=== PATIENT | male | born 1965 | race Caucasian/White ===

== ENCOUNTER 2016-09-19 11:47 | Emergency (ER) | payer BC ==
[2016-09-19 13:06] VITALS: BP 128/70
[2016-09-19] MEDS ORDERED: NS 0.9% 1000 ML* 1,000 ML IV ONE (14:56)
[2016-09-19] MEDS ORDERED: Ondansetron ODT TAB* 4 MG PO ONE (14:57)
--- NOTE | 2016-09-22 12:33 | UC ---
Larisa Alonso Michael, scribed for Rosalina Wilburn MD on 09/19/16 at 1512 . Abdominal Pain Male HPI - HPI Summary HPI Summary: 51 y/o male comes to [facility] presenting with constant nausea for the past three days. The pt also c/o decreased appetite, RAY, myalgia, dehydration, constipation, and fatigue. He states that the RAY occurs intermittently and is alleviated with Tylenol. The pt has taken 4-6 tablets of Tylenol within the past 3 days. The pt denies pain, blood, or dark stool in his last DM which was 3 days ago. He also denies sore throat, ear ache, cough, and CP. The PMHx is significant for hyperlipidemia. - History of Current Complaint Chief Complaint: UCAbdominalPain Stated Complaint: ABDOMINAL PAIN Hx Obtained From: Patient, Medical Records Onset/Duration: Gradual Onset, Still Present Timing: Constant Severity Initially: Mild Severity Currently: Moderate Pain Intensity: 4 Pain Scale Used: 0-10 Numeric Location: Other - RAY. myalgia. Radiates: No Alleviating Factor(s): Meds - Tylenol for RAY Associated Signs And Symptoms: Positive: Negative - sore throat, ear ache, cough , diarrhea and CP, Constipation, Decreased Appetite, Nausea, Other - RAY. myalgia. fatigue. dehydration. - Allergies/Home Medications Allergies/Adverse Reactions: Allergies Allergy/AdvReac Type Severity Reaction Status Date / Time Penicillins Allergy Unknown Verified 09/21/16 09:11 Reaction Details Home Medications: Home Medications Atorvastatin* [Lipitor 10 MG*] 09/19/16 [History] PMH/Surg Hx/FS Hx/Imm Hx Endocrine History Of: Reports: Dyslipidemia Denies: Diabetes, Thyroid Disease Cardiovascular History Of: Denies: Cardiac Disorders, Hypertension Respiratory History Of: Denies: COPD, Asthma GI/ History Of: Denies: Ulcer - Surgical History Surgical History: Yes Surgery Procedure, Year, and Place: torn maniscus,deviated septum repair,choley - Family History Known Family History: Negative: Diabetes - Social History Occupation: Employed Full-time Lives: Alone Alcohol Use: None Substance Use Type: None Smoking Status (MU): Never Smoked Tobacco Review of Systems Constitutional: Fatigue, Other - dehydration Gastrointestinal: Vomiting, Other - constipation. decreased appetite. Musculoskeletal: Myalgia Neurological: Headache All Other Systems Reviewed And Are Negative: Yes Physical Exam Triage Information Reviewed: Yes Appearance: Well-Nourished, Other: - lips were dry Vital Signs: Initial Vital Signs Temp 99.1 F 09/19/16 13:00 Pulse 70 09/19/16 13:00 Resp 18 09/19/16 13:00 BP 128/70 09/19/16 13:00 Pulse Ox 100 09/19/16 13:00 Vital Signs Reviewed: Yes Eye Exam: Normal ENT: Positive: Pharyngeal erythema, TMs normal, Other: - nml anterior uvula midline and trachea midline. Neck exam: Normal Respiratory Exam: Normal Respiratory: Positive: Chest non-tender, Lungs clear, Normal breath sounds, Other: - no dyspnea. no tachypnea. Cardiovascular: Positive: RRR, No Murmur, Pulses Normal, Brisk Capillary Refill Abdominal Exam: Other - mild diffuse discomfort No organomegaly appreciated. No R/G No cvat Abdomen Description: Positive: No Organomegaly, Soft. Negative: CVA Tenderness (R), CVA Tenderness (L) Bowel Sounds: Positive: Hyperactive Musculoskeletal Exam: Normal Musculoskeletal: Positive: Strength Intact Neurological Exam: Normal - nonfocal. grossly intact, Psychological: Positive: Age Appropriate Behavior, Other: - consersing easily Skin Exam: Normal - no visible or reported rash Abd Pain Male Course/Dx - Course Course Of Treatment: After 1st recheck the pt states feeling worse and will be transfered to [facility] [place] ED by ambulance. Discussed pt care and transfer with Doron Cutler at 1638. Negative influenza A and B. POC Urine Protein- 1+ . Ketones- 3+. [place] 1+ - Differential Dx/Clinical Impression Provider Diagnoses: Volume depletion. N/V. Abdominal discomfort Discharge - Discharge Plan Condition: Stable Disposition: TRANS HIGHER LVL OF CARE FAC Referrals: Non Staff,Doctor [Primary Care Provider] - The documentation as recorded by the Larisa marie Michael accurately reflects the service I personally performed and the decisions made by me, Rosalina Wilburn MD.
== END 2016-09-19 17:09 | disposition short-term general hospital (02) ==
LOC: UCEAST 11:47
DX: E86.9 Volume depletion, unspecified (principal); R11.2 Nausea with vomiting, unspecified; R10.84 Generalized abdominal pain; Z88.0 Allergy status to penicillin; E78.5 Hyperlipidemia, unspecified
CPT/HCPCS: 81003; 87502; 96360; 96361; 99213; G0463

== ENCOUNTER 2016-09-19 17:24 | Emergency (ER) | payer BC ==
[2016-09-19 17:35] VITALS: BP 130/74
[2016-09-19] MEDS ORDERED: Metoclopramide IV* 5 MG/ML 2 ML VIAL IV ONE (18:15)
--- NOTE | 2016-09-19 18:21 | ED ---
Abdominal Pain/Male - HPI Summary HPI Summary: Patient is referred from [facility] for diffuse vague abdominal pain, nausea and malaise for four days. He denies fever, chills, vomiting, headache, congestion, sore throat or reflux. He has not felt like eating or drinking much over this time period. 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 He feels lethargic. - History of Current Complaint Chief Complaint: EDNauseaVomitDiarrh Stated Complaint: NAUSEA Time Seen by Provider: 09/19/16 17:57 Hx Obtained From: Patient Onset/Duration: Gradual Onset Timing: Constant Severity Initially: Mild Severity Currently: Moderate Location: Diffuse Radiates: No Character: Dull Aggravating Factor(s): Nothing Alleviating Factor(s): Nothing Associated Signs And Symptoms: Positive: Decreased Appetite, Nausea - Allergies/Home Medications Allergies/Adverse Reactions: Allergies Allergy/AdvReac Type Severity Reaction Status Date / Time Penicillins Allergy Unknown Verified 09/19/16 17:34 Reaction Details PMH/Surg Hx/FS Hx/Imm Hx Endocrine/Hematology History: Denies: Hx Diabetes, Hx Thyroid Disease Cardiovascular History: Reports: Hx Hypercholesterolemia Denies: Hx Hypertension Respiratory History: Denies: Hx Asthma, Hx Chronic Obstructive Pulmonary Disease (COPD) GI History: Denies: Hx Ulcer - Surgical History Surgery Procedure, Year, and Place: torn maniscus,deviated septum repair,choley Infectious Disease History: No Infectious Disease History: Denies: Hx Hepatitis, Hx Human Immunodeficiency Virus (HIV), Traveled Outside the [place] in Last 30 Days - Family History Known Family History: Positive: None - Social History Occupation: Employed Full-time Lives: Alone Alcohol Use: None Substance Use Type: Reports: None Smoking Status (MU): Never Smoked Tobacco Review of Systems Positive: Fatigue. Negative: Fever, Chills Negative: Sore Throat, Ear Ache Negative: Chest Pain Negative: Shortness Of Breath Positive: Abdominal Pain, Nausea. Negative: Vomiting, Diarrhea Positive: no symptoms reported Negative: Myalgia Negative: Headache, Weakness, Paresthesia All Other Systems Reviewed And Are Negative: Yes Physical Exam Triage Information Reviewed: Yes Vital Signs On Initial Exam: Initial Vitals Temp Pulse Resp BP Pulse Ox 99.8 F 79 20 130/74 97 09/19/16 17:27 09/19/16 17:27 09/19/16 17:27 09/19/16 17:27 09/19/16 17:27 Vital Signs Reviewed: Yes Appearance: Positive: Well-Appearing - Patient is resting comfortably on the stretcher with his arms behind his head watching TV when I enter the room., No Pain Distress, Well-Nourished Skin: Positive: Warm, Skin Color Reflects Adequate Perfusion, Dry, Soft Head/Face: Positive: Normal Head/Face Inspection Eyes: Positive: EOMI, KIR[place], Conjunctiva Clear ENT: Positive: Hearing grossly normal Neck: Positive: Supple, Nontender, No Lymphadenopathy Respiratory/Lung Sounds: Positive: Clear to Auscultation, Breath Sounds Present Cardiovascular: Positive: RRR Abdomen Description: Positive: Soft. Negative: Nontender - minimal discomfort when I palpate, CVA Tenderness (R), CVA Tenderness (L), Distended, Guarding, Hernia @, McBur[place]'s Point Tenderness, Peritoneal Signs Bowel Sounds: Positive: Present Musculoskeletal: Negative: Edema Left, Edema Right Neurological: Positive: Sensory/Motor Intact, Alert, Oriented to Person Place, Time, NV Bundle Intact Distally, Normal Gait Psychiatric: Positive: Affect/Mood Appropriate AVPU Assessment: Alert Diagnostics - Vital Signs Vital Signs Temp Pulse Resp BP Pulse Ox 09/19/16 17:27 99.8 F 79 20 130/74 97 - Laboratory Result Diagrams: 09/19/16 18:50 09/19/16 18:50 Lab Statement: Any lab studies that have been ordered have been reviewed, and results considered in the medical decision making process. Abdominal Pain Fem Course/Dx - Course Course Of Treatment: I asked Dr. Escobar to evaluate the patient, since I did not feel his exam, clinical presentation or lab work required a CT scan. Dr. Escobar saw the patient and concurred with my assessment. Therefore the patient will be discharged home with information for establishing care with a local PCP. He understands to return to the ED if sympotms worsen. - Diagnoses Differential Diagnosis/HQI/PQRI: Appendicitis, Bowel Obstruction, Constipation, Diverticulitis, Gall Bladder Disease, Hepatitis, Pancreatitis, Renal Colic, Ureteral Stone, Urinary Tract Infection Provider Diagnoses: Gastroenteritis - Provider Notifications Discussed Care Of Patient With: Dr. Escobar, ED attending. Discharge - Discharge Plan Condition: Stable Disposition: HOME Prescriptions: Ondansetron ODT TAB* [Zofran 4 MG Odt TAB*] 4 mg PO Q6H PRN #20 tab.odt PRN Reason: Nausea Patient Education Materials: Gastroenteritis (ED) Forms: *Work Release Referrals: [facility] [place] PHYSICIAN REFERRAL [Outside] Additional Instructions: Please use the anti-nausea medication as needed. Drink extra fluids and use ibuprofen as needed. Try to eat bland foods and slowly reintroduce foods. Call the number provided to establish care with a local provider for follow-up care. Return to the emergency department if symptoms worsen.
[2016-09-19] MEDS: NS 0.9% 1000 ML* 2,000 ML IV ONE (18:53)
[2016-09-19 19:08] LABS: Hematocrit 47 % (42-52); Hemoglobin 15.9 g/dl (14.0-18.0); Mean Corpuscular HGB Conc 34 g/dl (31-36); Mean Corpuscular Hemoglobin 29 pg (27-31); Mean Corpuscular Volume 86 fL (80-94); Mean Platelet Volume 9 um3 (7.4-10.4); Red Blood Count 5.54 10^6/ul (4.0-5.4); Red Cell Distribution Width 14 % (10.5-15); Urine Bilirubin Negative (Negative); Urine Glucose Negative (Negative); Urine Nitrite Negative (Negative); White Blood Count 5.7 10^3/ul (3.5-10.8)
[2016-09-19 19:21] LABS: BUN/Creatinine Ratio 13.2 (8-20); C Reactive Protein 14.66 mg/L (< 5.00); Calcium 8.7 mg/dL (8.6-10.3); EGFR African American 94.4 (>60); EGFR Non-African American 73.4 (>60); Globulin 2.8 g/dL (2-4); Potassium 3.6 mmol/L (3.5-5.0); Total Bilirubin 1.4 mg/dL (0.2-1.0); Total Protein 6.8 g/dL (6.4-8.9)
[2016-09-19] MEDS ORDERED: Ondansetron ODT TAB* 4 MG PO ONE (20:03)
[2016-09-19] MEDS ORDERED: Ondansetron ODT TAB* 4 MG ONE (20:04)
== END 2016-09-19 20:09 | disposition home or self-care (01) ==
LOC: ED 17:24
DX: K52.9 Noninfective gastroenteritis and colitis, unspecified (principal); R10.84 Generalized abdominal pain; R11.0 Nausea; R53.81 Other malaise
CPT/HCPCS: 36415; 80053; 81003; 82150; 83605; 83690; 85025; 86140; 96374; 99283

== ENCOUNTER 2016-09-21 07:29 | Emergency (ER) | payer BC ==
[2016-09-21 08:01] VITALS: BP 125/74
--- NOTE | 2016-09-21 08:18 | RAD ---
INDICATION: Shortness of breath and chest pain. COMPARISON: There are no prior studies available for comparison. TECHNIQUE: Dual-energy PA and lateral views of the chest were obtained. FINDINGS: The heart is within normal limits in size. Mediastinal and hilar contours appear within normal limits. The lungs are clear. No pleural effusion is present. IMPRESSION: NO EVIDENCE FOR ACTIVE CARDIOPULMONARY DISEASE.
[2016-09-21] MEDS ORDERED: Aspirin Low Dose CHEW TAB* 81 MG ONE (08:38)
[2016-09-21] MEDS ORDERED: Aspirin Low Dose CHEW TAB* 81 MG PO ONE (08:38)
--- NOTE | 2016-09-21 15:48 | ED ---
Forest Alonso Alok, scribed for Rosalina Wilburn MD on 09/21/16 at 0753 . HPI Chest Pain - HPI Summary HPI Summary: 51 y/o male c/o progressive midsternal chest discomfort and pressure, and associated "short of breath." He noticed sx yesterday, progressively worse today. Recently seen in for n/v and volume depletion, despite anti-emetics and 2 LNS, symptoms did not improve and was transfered to the ED. Ancillaries from 09/19/16 noted in [employer] (include elevated crp). Reports that the GI symptoms have improved, still weak, but able to drink fluids w/o n/v. No diarrhea. No melena / brbpr. No urinary sx. No rash. No h/a, st, neck pain. He reports that he has never felt anything like this prior to current illness. Sx are present most of the time, midsternal to slight left ant chest area. Not modified with position. Possibly worse with swallowing. Definitely worse with inspiration. Not worse with external pressure. Denies urinary sx. No current fever. - History of Current Complaint Hx Obtained From: Patient Onset/Duration: Started Days Ago, Atraumatic, Still Present Timing: Constant Initial Severity: Worse Since: - Today Current Severity: Moderate Pain Intensity: 5 Pain Scale Used: 0-10 Numeric Chest Pain Location: Discrete at: - Mid-Sternal Chest Pain Radiates: No Character: Pressure/Squeezing Aggravating Factor(s): Nothing Alleviating Factor(s): Nothing Associated Signs and Symptoms: Positive: Chest Pain, Shortness of Breath - Allergy/Home Medications Allergies/Adverse Reactions: Allergies Allergy/AdvReac Type Severity Reaction Status Date / Time Penicillins Allergy Unknown Verified 09/21/16 09:11 Reaction Details PMH/Surg Hx/FS Hx/Imm Hx Previously Healthy: Yes - see hpi Endocrine/Hematology History: Denies: Hx Diabetes, Hx Thyroid Disease Cardiovascular History: Reports: Hx Hypercholesterolemia Denies: Hx Hypertension Respiratory History: Denies: Hx Asthma, Hx Chronic Obstructive Pulmonary Disease (COPD) GI History: Denies: Hx Ulcer - Surgical History Surgery Procedure, Year, and Place: torn maniscus,deviated septum repair,choley Infectious Disease History: Denies: Hx Hepatitis, Hx Human Immunodeficiency Virus (HIV) - Family History Known Family History: Negative: Cardiac Disease, Diabetes - Social History Occupation: Employed Full-time Alcohol Use: None Substance Use Type: Reports: None Smoking Status (MU): Never Smoked Tobacco Review of Systems Negative: Fever Positive: Chest Pain Positive: Shortness Of Breath Negative: Diarrhea Positive: no symptoms reported Negative: Rash Negative: Headache All Other Systems Reviewed And Are Negative: Yes Physical Exam Triage Information Reviewed: Yes Vital Signs On Initial Exam: Initial Vitals Temp Pulse Resp BP Pulse Ox 98.0 F 71 20 125/74 99 09/21/16 07:33 09/21/16 07:33 09/21/16 07:33 09/21/16 07:09/21/16 07:33 Vital Signs Reviewed: Yes Appearance: Positive: Well-Nourished - sitting up Skin: Positive: Warm, Skin Color Reflects Adequate Perfusion, Dry Eyes: Positive: Normal ENT: Positive: Normal ENT inspection Neck: Positive: Supple Respiratory/Lung Sounds: Positive: Clear to Auscultation, Breath Sounds Present , Other - no skin discoloration or rash. Cardiovascular: Positive: Normal, RRR - correlates with left radial pulse Abdomen Description: Positive: Nontender - unable to reproduce tenderness either in chest or in abd. No mass appreciated. No r/g. No cvat. Musculoskeletal: Positive: Normal Neurological: Positive: Normal - grossly normal. nonfocal. Psychiatric: Positive: Normal - conversing easily and appropriately Diagnostics - Vital Signs Vital Signs Temp Pulse Resp BP Pulse Ox 09/21/16 07:33 98.0 F 71 20 125/74 99 - Laboratory Lab Statement: Any lab studies that have been ordered have been reviewed, and results considered in the medical decision making process. - Radiology CXR Xray Interpretation: Positive (See Comments) - IMPRESSION: NO ACTIVE CARDIOPULMONARY DISEASE Radiology Interpretation Completed By: Radiologist - EKG 0743 EKG Rhythm: Sinus Rhythm - 69 bpm EKG Interpretation: VT 135 QRSD 109 QT 395 QTc 423. Probable left atrial enlargment. EKG Comparison: Other - No previous EKG comparison Chest Pain Course/Dx - Course Course Of Treatment: No new problems in CCC. CXR unremarkable. EKG no old for comp, reviewed with pt. Unable to give urine by time of departure. ASA 324mg ( 81 x 4) administered. Transfer to ED, offered and encouraged EMS transfer but pt declines ([place] to that effect signed). D/w SHAWN Hodges. Mr. Carlos was given the opportunity to ask several questions, to which I answered to the best of my ability. Diff dx includes wide array, including but not limited to esophagitis/GI, PE, Cardiac, infectious, other.... - Diagnoses Provider Diagnoses: Chest pain - Provider Notifications Discussed Care Of Patient With: Grace Viveros (ED PA) @ 0836 Discharge - Discharge Plan Condition: Stable Disposition: AGAINST MEDICAL ADVICE Referrals: Non Staff,Doctor [Primary Care Provider] - The documentation as recorded by the Forest marie Alok accurately reflects the service I personally performed and the decisions made by me, Rosalina Wilburn MD.
== END 2016-09-21 09:01 | disposition left against medical advice (07) ==
LOC: UCEAST 07:29
DX: R07.9 Chest pain, unspecified (principal); R06.02 Shortness of breath; E78.00 Pure hypercholesterolemia, unspecified; Z88.0 Allergy status to penicillin
CPT/HCPCS: 71020; 93005; 99212; A9270-GY; G0463

== ENCOUNTER 2016-09-21 09:05 | Emergency (ER) | payer BC ==
[2016-09-21] MEDS ORDERED: Aspirin Low Dose CHEW TAB* 81 MG PO ONE (09:33)
[2016-09-21] MEDS ORDERED: Sucralfate TAB* 1 GM PO ONE (09:34)
[2016-09-21] MEDS ORDERED: Pantoprazole IV* 40 MG IV ONE (09:34)
--- NOTE | 2016-09-21 10:05 | RAD ---
INDICATION: Chest pain. COMPARISON: Comparison is made with a prior study from September 21, 2016. TECHNIQUE: A portable view of the chest was obtained. FINDINGS: Cardiac and mediastinal contours appear to be within normal limits. The lungs are clear. No pleural effusion is seen. IMPRESSION: NO EVIDENCE FOR ACUTE DISEASE.
[2016-09-21 10:25] LABS: Hematocrit 47 % (42-52); Hemoglobin 15.6 g/dl (14.0-18.0); Mean Corpuscular HGB Conc 34 g/dl (31-36); Mean Corpuscular Hemoglobin 28 pg (27-31); Mean Corpuscular Volume 84 fL (80-94); Mean Platelet Volume 9 um3 (7.4-10.4); Red Blood Count 5.55 10^6/ul (4.0-5.4); Red Cell Distribution Width 14 % (10.5-15)
[2016-09-21] MEDS ORDERED: Sucralfate TAB* 1 GM ONE (10:27)
[2016-09-21 10:49] LABS: BUN/Creatinine Ratio 11.1 (8-20); EGFR African American 92.3 (>60); EGFR Non-African American 71.8 (>60); Potassium 3.6 mmol/L (3.5-5.0)
[2016-09-21 11:37] VITALS: BP 112/54
--- NOTE | 2016-09-21 11:53 | ED ---
Jennifer Alonso SooYoung, scribed for Fortino Mayo MD on 09/21/16 at 0919 . HPI Chest Pain - HPI Summary HPI Summary: A 51 y/o M presents to ED referred by [facility] today with c/o mid-sternal chest tightness onset yesterday. Aggravating factors: eating/drinking, swallowing. He states it "just doesn't feel right." Denies SOB. Pt was seen two days ago in ED for abd pain, also referred from [facility] that day, D/C home with dx: gastroenteritis. He notes feeling better yesterday, improved energy and appetite. Earlier sx for his GI bug included dry heaves, constipation, lethargy. - History of Current Complaint Chief Complaint: EDChestPainROMI Time Seen by Provider: 09/21/16 09:17 Hx Obtained From: Patient, Medical Records Onset/Duration: Started Days Ago - yesterday, Atraumatic Initial Severity: Mild Current Severity: Mild Pain Intensity: 3 Pain Scale Used: 0-10 Numeric Chest Pain Location: Mid Sternal Aggravating Factor(s): Other: - POS: eating/drinking, swallowing Associated Signs and Symptoms: Negative: Shortness of Breath - Allergy/Home Medications Allergies/Adverse Reactions: Allergies Allergy/AdvReac Type Severity Reaction Status Date / Time Penicillins Allergy Unknown Verified 09/21/16 09:11 Reaction Details PMH/Surg Hx/FS Hx/Imm Hx Previously Healthy: Yes Endocrine/Hematology History: Denies: Hx Diabetes, Hx Thyroid Disease Cardiovascular History: Reports: Hx Hypercholesterolemia Denies: Hx Hypertension Respiratory History: Denies: Hx Asthma, Hx Chronic Obstructive Pulmonary Disease (COPD) GI History: Denies: Hx Ulcer History: Reports: Hx Kidney Stones - Surgical History Surgery Procedure, Year, and Place: torn maniscus,deviated septum repair,choley Infectious Disease History: No Infectious Disease History: Denies: Hx Hepatitis, Hx Human Immunodeficiency Virus (HIV), Traveled Outside the [place] in Last 30 Days - Family History Known Family History: Positive: Other - father , [place]; mother alive Negative: Cardiac Disease - Social History Occupation: Employed Full-time Lives: Alone Alcohol Use: None Hx Substance Use: No Substance Use Type: Reports: None Hx Tobacco Use: No Smoking Status (MU): Never Smoked Tobacco Review of Systems Positive: Chest Pain Negative: Shortness Of Breath All Other Systems Reviewed And Are Negative: Yes Physical Exam Triage Information Reviewed: Yes Vital Signs On Initial Exam: Initial Vitals Temp Pulse Resp BP Pulse Ox 97.6 F 64 16 112/86 100 09/21/16 09:06 09/21/16 09:06 09/21/16 09:06 09/21/16 09:06 09/21/16 09:06 Vital Signs Reviewed: Yes Appearance: Positive: Well-Appearing, No Pain Distress Skin: Positive: Warm, Skin Color Reflects Adequate Perfusion, Dry Head/Face: Positive: Normal Head/Face Inspection Eyes: Positive: Normal ENT: Positive: Normal ENT inspection Neck: Positive: Supple, Nontender Respiratory/Lung Sounds: Positive: Clear to Auscultation, Breath Sounds Present Cardiovascular: Positive: RRR Musculoskeletal: Positive: Normal Neurological: Positive: Normal Psychiatric: Positive: Normal, Affect/Mood Appropriate Diagnostics - Vital Signs Vital Signs Temp Pulse Resp BP Pulse Ox 09/21/16 09:06 97.6 F 64 16 112/86 100 - Laboratory Lab Results: Lab Results 09/21/16 09/21/16 09/21/16 Range/Units 10:10 10:10 10:10 WBC 5.0 (3.5-10.8) 10^3/ul RBC 5.55 H (4.0-5.4) 10^6/ul Hgb 15.6 (14.0-18.0) g/dl Hct 47 (42-52) % MCV 84 (80-94) fL MCH 28 (27-31) pg MCHC 34 (31-36) g/dl RDW 14 (10.5-15) % Plt Count 146 L (150-450) 10^3/ul MPV 9 (7.4-10.4) um3 Neut % (Auto) 70.7 (38-83) % Lymph % (Auto) 15.8 L (25-47) % [place] % (Auto) 13.1 H (1-9) % Eos % (Auto) 0 (0-6) % Baso % (Auto) 0.4 (0-2) % Absolute Neuts (auto) 3.5 (1.5-7.7) 10^3/ul Absolute Lymphs (auto) 0.8 L (1.0-4.8) 10^3/ul Absolute Monos (auto) 0.7 (0-0.8) 10^3/ul Absolute Eos (auto) 0 (0-0.6) 10^3/ul Absolute Basos (auto) 0 (0-0.2) 10^3/ul Absolute Nucleated RBC 0 10^3/ul Nucleated RBC % 0 D-Dimer, Quantitative 219 (Less Than 230) ng/mL Sodium 134 (133-145) mmol/L Potassium 3.6 (3.5-5.0) mmol/L Chloride 98 L (101-111) mmol/L Carbon Dioxide 30 (22-32) mmol/L Anion Gap 6 (2-11) mmol/L BUN 12 (6-24) mg/dL Creatinine 1.08 (0.67-1.17) mg/dL Est GFR ( Amer) 92.3 (>60) Est GFR (Non-Af Amer) 71.8 (>60) BUN/Creatinine Ratio 11.1 (8-20) Glucose 96 (70-100) mg/dL Lactic Acid (0.5-2.0) mmol/L Calcium 9.0 (8.6-10.3) mg/dL Total Bilirubin 1.00 (0.2-1.0) mg/dL AST 21 (13-39) U/L ALT 20 (7-52) U/L Alkaline Phosphatase 62 (34-104) U/L Troponin I 0.00 (<0.04) ng/mL Total Protein 7.0 (6.4-8.9) g/dL Albumin 4.0 (3.2-5.2) g/dL Globulin 3.0 (2-4) g/dL Albumin/Globulin Ratio 1.3 (1-3) 09/21/16 Range/Units 10:10 WBC (3.5-10.8) 10^3/ul RBC (4.0-5.4) 10^6/ul Hgb (14.0-18.0) g/dl Hct (42-52) % MCV (80-94) fL MCH (27-31) pg MCHC (31-36) g/dl RDW (10.5-15) % Plt Count (150-450) 10^3/ul MPV (7.4-10.4) um3 Neut % (Auto) (38-83) % Lymph % (Auto) (25-47) % [place] % (Auto) (1-9) % Eos % (Auto) (0-6) % Baso % (Auto) (0-2) % Absolute Neuts (auto) (1.5-7.7) 10^3/ul Absolute Lymphs (auto) (1.0-4.8) 10^3/ul Absolute Monos (auto) (0-0.8) 10^3/ul Absolute Eos (auto) (0-0.6) 10^3/ul Absolute Basos (auto) (0-0.2) 10^3/ul Absolute Nucleated RBC 10^3/ul Nucleated RBC % D-Dimer, Quantitative (Less Than 230) ng/mL Sodium (133-145) mmol/L Potassium (3.5-5.0) mmol/L Chloride (101-111) mmol/L Carbon Dioxide (22-32) mmol/L Anion Gap (2-11) mmol/L BUN (6-24) mg/dL Creatinine (0.67-1.17) mg/dL Est GFR ( Amer) (>60) Est GFR (Non-Af Amer) (>60) BUN/Creatinine Ratio (8-20) Glucose (70-100) mg/dL Lactic Acid 1.0 (0.5-2.0) mmol/L Calcium (8.6-10.3) mg/dL Total Bilirubin (0.2-1.0) mg/dL AST (13-39) U/L ALT (7-52) U/L Alkaline Phosphatase (34-104) U/L Troponin I (<0.04) ng/mL Total Protein (6.4-8.9) g/dL Albumin (3.2-5.2) g/dL Globulin (2-4) g/dL Albumin/Globulin Ratio (1-3) Result Diagrams: 09/21/16 10:10 09/21/16 10:10 Lab Statement: Any lab studies that have been ordered have been reviewed, and results considered in the medical decision making process. - Radiology CXR Xray Interpretation: No Acute Changes - IMPRESSION: No evidence of acute dz. Radiology Interpretation Completed By: Radiologist - EKG 1 EKG Rhythm: Sinus Rhythm Re-Evaluation - Re-Evaluation 1 Re-Evaluation Time: 11:14 Change: Improved Comment: Discussing results with pt. Chest Pain Course/Dx - Course Course Of Treatment: Mr. Carlos presented after a few days of nausea and wretching which has resolved. He had noticed a fullness in his mid chest since yesterday which was aggravated by swallowing and especially by eating. His W/U was negative and he got a lot of relief with GI medications and I think this is esophageal irritation. I will treat him with a couple days of sucralfate. - Diagnoses Provider Diagnoses: Dyspepsia Discharge - Discharge Plan Condition: Stable Disposition: HOME Prescriptions: Sucralfate SUSP 1 gm PO SEE INSTRUCTIONS #100 ml Patient Education Materials: Sucralfate (By mouth), Chest Pain (ED) Referrals: Non Staff,Doctor [Primary Care Provider] - [facility] [place] PH[facility]IAN REFERRAL [Outside] Additional Instructions: As we discussed: Take your medication as prescribed. Follow up with your primary care physician as needed. Return to the ED if you experience new or worsening symptoms. The documentation as recorded by the Jennifer marie SooYoung accurately reflects the service I personally performed and the decisions made by me, Fortino Mayo MD.
== END 2016-09-21 11:43 | disposition home or self-care (01) ==
LOC: ED 09:05
DX: R10.13 Epigastric pain (principal); R07.9 Chest pain, unspecified
CPT/HCPCS: 36415; 71010; 80053; 83605; 84484; 85025; 85379; 93005; 96374; 99283; A9270-GY

== ENCOUNTER 2016-09-24 16:53 | Emergency (ER) | payer BC ==
--- NOTE | 2016-09-24 19:02 | UC ---
Respiratory Complaint HPI - HPI Summary HPI Summary: 1 WEEK OF DRY COUGH. NON PRODUCTIVE. KEEPS HIM UP AT NIGHT. CHEST FEELS TIGHT. ALSO FEELS LIKE HE HAS A HARD TIME SWALLOWING SOLID FOODS. THEY ARE GOING DOWN BUT FEEL LIKE THEY ARE GETTING STUCK ON THE WAY DOWN. NO PROBLEM WITH FLUIDS. - History of Current Complaint Chief Complaint: UCGeneralIllness Stated Complaint: COUGH Time Seen by Provider: 09/24/16 18:25 Hx Obtained From: Patient Onset/Duration: Gradual Onset, Lasting Days, Still Present Timing: Constant Severity Initially: Moderate Severity Currently: Moderate Pain Intensity: 5 Pain Scale Used: 0-10 Numeric Character: Cough: Nonproductive Aggravating Factors: Deep Breaths Alleviating Factors: Nothing Associated Signs And Symptoms: Positive: Pleuritic Chest Pain - Allergies/Home Medications Allergies/Adverse Reactions: Allergies Allergy/AdvReac Type Severity Reaction Status Date / Time Penicillins Allergy Unknown Verified 09/24/16 18:16 Reaction Details PMH/Surg Hx/FS Hx/Imm Hx Endocrine History Of: Denies: Diabetes, Thyroid Disease Cardiovascular History Of: Denies: Cardiac Disorders, Hypertension Respiratory History Of: Denies: COPD, Asthma GI/ History Of: Reports: Kidney Stones Denies: Ulcer - Surgical History Surgical History: Yes Surgery Procedure, Year, and Place: torn maniscus,deviated septum repair,choley - Family History Known Family History: Positive: Hypertension, Other - father , [place]; mother alive Negative: Cardiac Disease - Social History Alcohol Use: None Substance Use Type: None Smoking Status (MU): Never Smoked Tobacco Review of Systems Constitutional: Negative Skin: Negative Respiratory: Cough Cardiovascular: Negative Gastrointestinal: Other - DYSPHAGIA Genitourinary: Negative All Other Systems Reviewed And Are Negative: Yes Physical Exam Triage Information Reviewed: Yes Appearance: Well-Appearing, No Pain Distress, Well-Nourished Vital Signs: Initial Vital Signs Temp 98.0 F 09/24/16 18: Pulse 75 09/24/16 18:17 Resp 18 09/24/16 18:17 BP 137/78 09/24/16 18:17 Pulse Ox 97 09/24/16 18:17 Vital Signs Reviewed: Yes Eyes: Positive: Conjunctiva Clear ENT: Positive: Hearing grossly normal, Pharynx normal, TMs normal Neck: Positive: Supple, Nontender, No Lymphadenopathy Respiratory: Positive: Lungs clear, Normal breath sounds, No respiratory distress, No accessory muscle use, Other: - DEEP, DRY COUGH Cardiovascular Exam: Normal Abdomen Description: Positive: Soft Musculoskeletal: Positive: No Edema Neurological: Positive: Alert Psychological: Positive: Age Appropriate Behavior Skin: Negative: rashes UC Diagnostic Evaluation - Laboratory O2 Sat by Pulse Oximetry: 97 Respiratory Course/Dx - Differential Dx/Diagnosis Provider Diagnoses: 1. ACUTE BRONCHITIS. 2. DYSPHAGIA Discharge - Discharge Plan Condition: Stable Disposition: HOME Prescriptions: Albuterol HFA INHALER* [Ventolin HFA Inhaler*] 2 puff INH Q4H PRN #1 mdi PRN Reason: Shortness Of Breath Azithromycin [Azithromycin 500 MG TAB] 500 mg PO DAILY #5 tab guaiFENesin/CODIEN 100MG-10MG* [Robitussin AC 100Mg-10Mg*] 5 - 10 ml PO Q6H PRN #150 ml MDD 40 ML PRN Reason: Cough predniSONE TAB* [Deltasone TAB*] 50 mg PO DAILY #5 tab Patient Education Materials: Acute Bronchitis (ED), Dysphagia (ED) Referrals: Bhupendra Drake MD [Medical Doctor] - (CALL FOR AN APPT TO ADDRESS YOUR DIFFICULTY SWALLOWING) Additional Instructions: NO CLEAR BACTERIAL ETIOLOGY OF YOUR SYMPTOMS. TRY PREDNISONE FIRST. FILL RX FOR ANTIBIOTIC OF NO IMPROVEMENT WITH PREDNISONE. CALL THE NUMBER BELOW FOR ASSISTANCE IN ESTABLISHING WITH A PCP An additional resource available to assist in finding the appropriate physician for your health care needs is the [facility] ([facility]). You may contact them by calling [phone].
[2016-09-24 19:22] VITALS: BP 120/79
== END 2016-09-24 19:10 | disposition home or self-care (01) ==
LOC: UCEAST 16:53
DX: J20.9 Acute bronchitis, unspecified (principal); R13.10 Dysphagia, unspecified; Z88.0 Allergy status to penicillin; Z87.442 Personal history of urinary calculi
CPT/HCPCS: 99212; G0463

== ENCOUNTER 2018-05-05 14:21 | Emergency (ER) | payer BC ==
[2018-05-05 14:51] VITALS: BP 112/65
--- NOTE | 2018-05-05 16:03 | UC ---
Throat Pain/Nasal Kyle HPI - HPI Summary HPI Summary: 53 y/o male presents to the urgent care c/o nasal congestion, green nasal charge w/ severe sinus pain for the past 2 weeks. Pt reports symptoms started w / a common cold. he has done the domo pot and taken OTC medications w/o any improvement. Sinus pain more on the RT side and +PND yellowish in color and RT ear fluid. Pt states sinus pain is 9/10. Pt is PCN allergic. Pt denies fever, SOB, dizziness, chest pain,abdominal pain, N/V/D. - History of Current Complaint Chief Complaint: UCGeneralIllness Stated Complaint: SINUS ISSUE Time Seen by Provider: 05/05/18 15:28 Hx Obtained From: Patient Onset/Duration: Gradual Onset, Lasting Weeks - 2 weeks Severity: Severe Pain Intensity: 9 - sinus pain Pain Scale Used: 0-10 Numeric Cough: None Associated Signs & Symptoms: Positive: Sinus Discomfort, Nasal Discharge - Epiglottits Risk Factors Epiglottis Risk Factors: Negative - Allergies/Home Medications Allergies/Adverse Reactions: Allergies Allergy/AdvReac Type Severity Reaction Status Date / Time Penicillins Allergy Intermediate Rash Verified 05/05/18 14:51 PMH/Surg Hx/FS Hx/Imm Hx Previously Healthy: Yes Endocrine History: Dyslipidemia - Surgical History Surgical History: Yes Surgery Procedure, Year, and Place: torn maniscus,deviated septum repair,choley - Family History Known Family History: Positive: Hypertension, Other - father , [place]; mother alive Negative: Cardiac Disease - Social History Occupation: Employed Full-time Lives: With Family Alcohol Use: None Substance Use Type: None Smoking Status (MU): Never Smoked Tobacco Review of Systems All Other Systems Reviewed And Are Negative: Yes Constitutional: Positive: Negative Skin: Positive: Negative Eyes: Positive: Negative ENT: Positive: Ear Ache - RT ear fluid, Nasal Discharge, Sinus Congestion, Sinus Pain/Tenderness Respiratory: Positive: Negative Cardiovascular: Positive: Negative Gastrointestinal: Positive: Negative Genitourinary: Positive: Negative Motor: Positive: Negative Neurovascular: Positive: Negative Musculoskeletal: Positive: Negative Neurological: Positive: Headache Psychological: Positive: Negative Is Patient Immunocompromised?: No Physical Exam - Summary Physical Exam Summary: Vitals: reviewed General: Well developed, well-nourished male patient with NAD. Head and face: Normocephalic and atraumatic, Positive tenderness over the frontal and maxillary sinuses.. Eyes: PERRLA, EOMI x 2. Normal conjunctiva. No eye discharge. ENT: Ears and TM with normal limits. Nose: edematous and erythematous nasal mucosa with with yellowish discharge and erythematous mucosa. Pharynx with erythema, no exudate. +green PND Neck: Supple, no JVD, no carotid bruits and no lymphadenopathy. Lungs: clear, no rales, no rhonchi, no wheezes. CVS: RRR, S1 and S2 present no murmurs or gallops appreciated. Abdomen: soft nontender with positive bowel sounds. Extremities: no edema noted. Neuro: WNL. Skin: warm and dry Triage Information Reviewed: Yes Vital Signs: Initial Vital Signs Temp 97.9 F 05/05/18 14:47 Pulse 61 05/05/18 14:47 Resp 18 05/05/18 14:47 BP 112/65 05/05/18 14:47 Pulse Ox 100 05/05/18 14:47 Throat Pain/Nasal Course/Dx - Course Course Of Treatment: 53 y/o male presents to the urgent care c/o nasal congestion, green nasal charge w/ severe sinus pain for the past 2 weeks. Pt reports symptoms started w/ a common cold. he has done the domo pot and taken OTC medications w/o any improvement. Sinus pain more on the RT side and +PND yellowish in color and RT ear fluid. Pt states sinus pain is 9/10. Pt is PCN allergic. Pt denies fever, SOB, dizziness, chest pain,abdominal pain, N/V/D. Hx obtained. Pt w/ acute bacterial sinusitis on examination. Pt with 2 weeks of symptoms getting worse. Pt is PCN allergic Rx Doxycycline PO and flonase nasal spray. Advised to take Ibuprofen PO to alleviate headache. Discharge instructions explained to Pt. Advised to Return to the clinic or PCP if symptoms do not improve.Pt understood and agreed with plan of care. - Differential Dx/Diagnosis Differential Diagnosis/HQI/PQRI: Laryngitis, Otitis Media, Pharyngitis, Sinusitis, Tonsillitis, URI Provider Diagnoses: 1- Acute bacterail sinustis Discharge - Sign-Out/Discharge Documenting (check all that apply): Patient Departure - D/c home All imaging exams completed and their final reports reviewed: No Studies - Discharge Plan Condition: Stable Disposition: HOME Prescriptions: DOXYcycline CAP(*) [DOXYcycline 100MG CAP(*)] 100 mg PO BID #20 cap Fluticasone NASAL SPRAY 50MCG* [Flonase NASAL SPRAY 50MCG*] 2 spray BOTH NARES DAILY #1 btl Patient Education Materials: Sinusitis (ED) Referrals: [facility] [Outside] - 3 Days Additional Instructions: 1- Please increase fluid intake and rest. take full course of antibiotic to avoid resistance 2-Use Flonase nasal spray as directed to help drain fluid. Also buy saline drops to clear sinuses 3- Please take Ibuprofen PO q6-8hrs prn after meals to alleviate headache ad sinus pain. 4-Return to the clinic or PCP in 3 days if symptoms do not improve for further management and treatment - Billing Disposition and Condition Condition: STABLE Disposition: Home
== END 2018-05-05 16:15 | disposition home or self-care (01) ==
LOC: UCEAST 14:21
DX: J01.90 Acute sinusitis, unspecified (principal); B96.89 Other specified bacterial agents as the cause of diseases classified elsewhere; Z88.0 Allergy status to penicillin
CPT/HCPCS: 99212; G0463

== ENCOUNTER 2018-05-11 19:31 | Emergency (ER) | payer BC ==
[2018-05-11 19:44] VITALS: BP 138/84
--- NOTE | 2018-05-11 19:48 | UC ---
Throat Pain/Nasal Kyle HPI - HPI Summary HPI Summary: 53 yo male presents with right periorbital pain. He tells me that on 05/06 he was seen here and dx'd with a sinus infection and placed on doxycycline and flonase. He has taken these for 5 days with no relief of his symptoms. Today he tells me that his pain began about 2 weeks ago and has persisted through today. Over the last 4-5 days has had tearing of his right eye and pain extending to his right religious. He has taken ibuprofen with mild relief for an hour or two, but the pain will return. He does not have a history of migraines or headaches. He has not had any sinus congestion, rhinorrhea, or epistaxis. He has no changes in his vision, eye crusting, headache, dizziness, tinnitus, pain with eye movement, photophobia, or dental pain. - History of Current Complaint Chief Complaint: UCRespiratory Stated Complaint: SINUS CONGESTION Time Seen by Provider: 05/11/18 19:47 Hx Obtained From: Patient Onset/Duration: Gradual Onset Severity: Severe Pain Intensity: 9 Pain Scale Used: 0-10 Numeric - Allergies/Home Medications Allergies/Adverse Reactions: Allergies Allergy/AdvReac Type Severity Reaction Status Date / Time Penicillins Allergy Intermediate Rash Verified 05/11/18 19:44 Home Medications: Home Medications Ibuprofen TAB* [Advil TAB*] 400 mg PO PRN 05/11/18 [History] PMH/Surg Hx/FS Hx/Imm Hx Endocrine History: Dyslipidemia - Surgical History Surgical History: Yes Surgery Procedure, Year, and Place: torn meniscus,deviated septum repair, choleycystectomy - Family History Known Family History: Positive: Hypertension, Other - father , [place]; mother alive Negative: Cardiac Disease - Social History Occupation: Employed Full-time Lives: With Family Alcohol Use: None Substance Use Type: None Smoking Status (MU): Never Smoked Tobacco Review of Systems All Other Systems Reviewed And Are Negative: Yes Constitutional: Positive: Negative Skin: Positive: Negative Eyes: Positive: Other - Pain around right eye ENT: Positive: Negative Respiratory: Positive: Negative Cardiovascular: Positive: Negative Gastrointestinal: Positive: Negative Neurovascular: Positive: Negative Musculoskeletal: Positive: Negative Neurological: Positive: Negative Psychological: Positive: Negative Physical Exam - Summary Physical Exam Summary: GENERAL: NAD. WDWN. No pain distress. SKIN: No rashes, sores, lesions, or open wounds. HEENT: Head: AT/NC. NTTP TMJ. Eyes: EOM intact. PERRLA. Conjunctiva clear without inflammation or discharge. TTP overlying right temporal region, supraorbital ridge, ethmoid bone, and superior maxilla. Mild tearing of eye - clear. Right Lacrimal duct patent. Eyeball NTTP. No periorbital edema or erythema. Fluorescein exam was performed and was normal - no increased uptake, joyce sign, or dendritic lesion. No abrasion. Ears: Hearing grossly normal. TMs intact, no bulging, erythema, or edema. Nose: Nasal mucosa pink and moist. NTTP maxillary and frontal sinus. Throat: Posterior oropharynx without exudates, erythema, or tonsillar enlargement. Uvula midline. NECK: Supple. Nontender. No lymphadenopathy. CHEST: CTAB. No r/r/w. No accessory muscle use. Breathing comfortably and in no distress. CV: RRR. Without m/r/g. Pulses intact. NEURO: Alert. PSYCH: Age appropriate behavior. Triage Information Reviewed: Yes Vital Signs: Initial Vital Signs Temp 97.4 F 05/11/18 19:39 Pulse 63 05/11/18 19:39 Resp 16 05/11/18 19:39 BP 138/84 05/11/18 19:39 Pulse Ox 99 05/11/18 19:39 Vital Signs Reviewed: Yes Dental: Negative: Percussion Tenderness @, Gross Decay/Caries @, Dental Fracture @, Abscess @ Throat Pain/Nasal Course/Dx - Course Course Of Treatment: He had no change of his symptoms after tetracaine instillation. Discussed case at length with Dr. Tadeo. I am unsure the cause of the pt's discomfort. I have a suspicion for ethmoid sinusitis, cluster headache, temporal arteritis, trigeminal neuralgia, or zoster. Will draw for CBC , CRP, and ESR and have him try naproxen BID and f/u with [facility] for further evaluation of his discomfort. If his symptoms worsen or if he develops new symptoms - to go to the ED. Pt voiced understanding and is in agreement with the plan. - Differential Dx/Diagnosis Provider Diagnoses: Right periorbital pain Discharge - Sign-Out/Discharge Documenting (check all that apply): Patient Departure All imaging exams completed and their final reports reviewed: No Studies - Discharge Plan Condition: Stable Disposition: HOME Prescriptions: Naproxen [Naproxen 500 mg tab] 500 mg PO BID PRN #20 tablet PRN Reason: Pain Referrals: No Primary Care Phys,NOPCP [Primary Care Provider] - [facility] [Outside] - As Soon As Possible Additional Instructions: If you develop a fever, shortness of breath, chest pain, new or worsening symptoms - please call your PCP or go to the ED. 1) I am unsure the cause of your pain today - please call the [facility] at the number below to schedule a follow up appointment as soon as possible for review of your lab results and further evaluation of your symptoms. - Billing Disposition and Condition Condition: STABLE Disposition: Home
[2018-05-11] MEDS ORDERED: Fluorescein Sodium TOPICAL* 1 MG TEST STRIP OPHTHALMIC ONE (20:10)
[2018-05-11] MEDS ORDERED: Tetracaine 0.5% OPTH.SOL 4 ML* 1 DROP BTL RIGHT EYE ONE (20:10)
[2018-05-11] MEDS ORDERED: Tetracaine 0.5% OPTH.SOL 4 ML* 1 DROP BTL ONE (20:12)
[2018-05-11] MEDS ORDERED: Fluorescein Sodium TOPICAL* 1 MG TEST STRIP ONE (20:12)
[2018-05-11] MEDS ORDERED: Naproxen TAB* 250 MG PO ONE (21:09)
[2018-05-12 11:18] LABS: ABS Basophils 0 10^3/ul (0-0.2); ABS Eosinophils 0 10^3/ul (0-0.6); ABS Lymphocytes 1.2 10^3/ul (1.0-4.8); ABS Monocytes 0.4 10^3/ul (0-0.8); ABS Neutrophils 4.3 10^3/ul (1.5-7.7); ABS Nucleated RBC 0 10^3/ul; Eosinophil % 0.8 % (0-6); Hematocrit 48 % (42-52); Hemoglobin 16.4 g/dl (14.0-18.0); Lymphocyte % 20.4 % (25-47); Mean Corpuscular HGB Conc 34 g/dl (31-36); Mean Corpuscular Hemoglobin 29 pg (27-31); Mean Corpuscular Volume 86 fL (80-94); Mean Platelet Volume 9.5 fL (7.4-10.4); Nucleated Red Blood Cells % 0.1; Platelet Count 187 10^3/ul (150-450); Red Blood Count 5.64 10^6/ul (4.00-5.40); Red Cell Distribution Width 14 % (10.5-15)
== END 2018-05-11 21:14 | disposition home or self-care (01) ==
LOC: UCEAST 19:31
DX: H57.11 Ocular pain, right eye (principal); Z88.0 Allergy status to penicillin
CPT/HCPCS: 36415; 85025; 85652; 86140; 99212; A9270-GY; G0463